=== PATIENT | male | born 1955 | race Caucasian/White ===

== ENCOUNTER → 2018-06-04 | Outpatient (CLI) | payer OTHER ==
[2015-07-03 14:30] VITALS: BP 144/93
[~2018-06-04] MED LIST: FLUT1DIS3 IH; IOHEXOL 240 MG/ML 50ML VIAL. PO ONE; IOHEXOL 300 MG/ML 100ML VIAL. IV ONE
[2018-06-04 09:38] LABS: BASO # 0.1 x10^3/uL (0.0-0.2); BASO % 1 % (0-3); EOS # 0.5 x10^3/uL (0.0-0.7); EOS % 8 % (0-3); HEMATOCRIT 45.6 % (39.0-53.0); HEMOGLOBIN 15.3 g/dL (13.0-17.5); LYMPH # 1.7 x10^3/uL (1.0-4.8); LYMPH % 28 % (24-48); MEAN CORPUSCULAR HEMOGLOBIN 32 pg (25-35); MEAN CORPUSCULAR HGB CONC 34 g/dL (31-37); MEAN CORPUSCULAR VOLUME 96 fL (79-100); MONO # 0.4 x10^3/uL (0.0-1.1); MONO % 7 % (0-9); NEUT # 3.3 x10^3uL (1.8-7.7); NEUT % 56 % (31-73); PLATELET COUNT 171 x10^3/uL (140-400); RED BLOOD COUNT 4.77 x10^6/uL (4.30-5.70); RED CELL DISTRIBUTION WIDTH 12.3 % (11.5-14.5); WHITE BLOOD COUNT 5.9 x10^3/uL (4.0-11.0)
[2018-06-04 10:07] LABS: ALBUMIN 3.8 g/dL (3.4-5.0); ALBUMIN/GLOBULIN RATIO 1.1 (1.0-1.7); CALCIUM 8.6 mg/dL (8.5-10.1); GFR 76.2; POTASSIUM 4.6 mmol/L (3.5-5.1); TOTAL BILIRUBIN 0.5 mg/dL (0.2-1.0); TOTAL PROTEIN 7.2 g/dL (6.4-8.2)
--- NOTE | 2018-06-04 11:18 | RAD ---
PQRS Compliance statement: One or more of the following individualized dose reduction techniques were utilized for this examination: 1. Automated exposure control. 2. Adjustment of the mA and/or kV according to patient size. 3. Use of iterative reconstruction technique. Indication:H/O TESTICULAR CA INJ 75ML OMNI 300 NO PREV TECHNIQUE: CT chest, abdomen and pelvis with IV contrast with multiplanar reformats. COMPARISON: None FINDINGS: Heart is normal in size. No pericardial or pleural effusion. Clear neck base. No enlarged axillary, mediastinal or hilar adenopathy. Central airways are patent. 2 mm nodule in the left upper lobe (series 2 image 14). Otherwise, lungs are clear. No suspicious bony lesion. Liver, spleen, gallbladder, pancreas, adrenals and right kidney within normal limits. Simple appearing cysts are seen in the left kidney, the largest measuring 1.6 cm. No free pelvic fluid or ascites. No enlarged retroperitoneal or pelvic adenopathy. The prostate and seminal vesicles show no large mass. Small bilateral fat-containing inguinal hernia, right slightly greater than left. No bowel obstruction. Urinary bladder is within normal limits. Likely status post left orchiectomy. 1.5 cm sclerotic focus in the right iliac bone. Bilateral L5 pars defect without malalignment. IMPRESSION: 1. 2 mm nonspecific left upper lobe nodule. Attention on future exams. 2. Small focus of sclerosis in the right iliac bone, nonspecific may represent bony island. Attention on future exam. Electronically signed by: Fredis Armendariz DO (06/04/2018 11:15 AM) [id number]
[2018-06-04 18:12] LABS: AFPT MARKER 1.9 ng/mL (0.0-8.3)
== END | disposition home or self-care (01) ==
LOC: CT 08:57
PROVIDERS: ATTEND Internal Medicine Hematology & Oncology
DX: R91.1 Solitary pulmonary nodule (principal); M89.8X8 Other specified disorders of bone, other site; Z85.47 Personal history of malignant neoplasm of testis
CPT/HCPCS: 36415; 71260; 74177; 80053; 82105; 83615; 84702; 85025; Q9966; Q9967; 84704

== ENCOUNTER → 2018-12-21 | Outpatient (CLI) | payer OTHER ==
[2015-07-03 14:30] VITALS: BP 144/93
[~2018-12-21] MED LIST changes: +CONTRAST GIVEN. MC PRN
--- NOTE | 2018-12-21 16:28 | RAD ---
EXAM: Chest, abdomen and pelvis CT with intravenous contrast. HISTORY: Testicular cancer. TECHNIQUE: Computed tomographic images of the chest, abdomen and pelvis were obtained following the administration of 75 cc Omnipaque 300 intravenous contrast. Multiplanar reformatting was performed. *One or more of the following individualized dose reduction techniques were utilized for this examination: 1. Automated exposure control. 2. Adjustment of the mA and/or kV according to patient size. 3. Use of iterative reconstruction technique. COMPARISON: 06/04/2018. FINDINGS: Chest: There has been no change in a 2 mm left upper lobe pulmonary nodule. No new nodule is seen. There is slight atelectasis or scarring along the right horizontal fissure. There is no infiltrate, pleural effusion or pneumothorax. The heart is normal in size. The aorta is normal in caliber. There is no thoracic lymphadenopathy. There is no suspicious thoracic osseous lesion. There are multiple endplate Schmorl's nodes and there is endplate remodeling throughout the mid and lower thoracic spine. Abdomen and pelvis: There is hepatic steatosis. There is focal fatty sparing along the gallbladder fossa. There is no suspicious hepatic lesion. The gallbladder, pancreas, spleen and adrenal glands are unremarkable. There are small cysts within the anterior upper mid zone of the left kidney, the largest of which measures 1.7 cm. There are tiny hypodense lesions within the right kidney, too small to characterize and also likely cysts. There is no hydronephrosis. No abnormally thickened or dilated loop bowel is seen. The urinary bladder is unremarkable. There are calcifications within the prostate. There is a small fat-containing right inguinal hernia. There has been prior left orchiectomy surgery. The aorta is normal in caliber. There is no lymphadenopathy. There is a stable sclerotic lesion within the right iliac bone. There is minimal grade 1 anterolisthesis of L5 on S1, with associated bilateral pars interarticularis defects. IMPRESSION: 1. No acute thoracic, abdominal or pelvic finding. There are changes consistent with a prior left orchiectomy. 2. Stable tiny benign-appearing left upper lobe pulmonary nodule. 3. Stable sclerotic lesion within the right iliac bone. This may be a benign bone island. 4. Bilateral pars defects at L5-S1, with minimal associated grade 1 anterolisthesis. 5. Small left and likely tiny right renal cysts, some of which are too small to characterize. Electronically signed by: Oriana Lopez MD (12/21/2018 4:24 PM) [place] [id number]
== END | disposition home or self-care (01) ==
LOC: CT 08:33
PROVIDERS: ATTEND Internal Medicine Hematology & Oncology
DX: C62.12 Malignant neoplasm of descended left testis (principal); R91.1 Solitary pulmonary nodule; M51.44 Schmorl's nodes, thoracic region; K76.0 Fatty (change of) liver, not elsewhere classified; N28.1 Cyst of kidney, acquired; K40.90 Unilateral inguinal hernia, without obstruction or gangrene, not specified as recurrent; Z90.89 Acquired absence of other organs
CPT/HCPCS: 71260; 74177; Q9966; Q9967